=== PATIENT | female | born 2000 ===

== ENCOUNTER 2019-12-19 20:10 | Inpatient (IN) | payer MEDICAID ==
[~2019-12-19] VITALS: Ht 162.6 cm; Wt 104.3 kg
[2019-12-19 21:07] LABS: HEMATOCRIT 35.8 % (36.0-48.0); HEMOGLOBIN 11.6 g/dL (12-16); MCH 29.4 pg (26.0-34.0); MCHC 32.4 g/dL (31.0-37.0); MCV 90.6 fL (80.0-100.0); MEAN PLATELET VOLUME 9.5 fL (7.4-10.4); RBC 3.95 10x6/uL (4.00-5.40); RDW 15.4 % (11.5-14.5); WBC 12.7 10x3/uL (4.8-10.8)
[2019-12-19 21:23] VITALS: BP 123/66; Ht 162.6 cm; Wt 104.3 kg
[2019-12-19 22:06] LABS: UDS - AMPHET NEGATIVE QUAL (NEGATIVE); UDS - BARB NEGATIVE QUAL (NEGATIVE); UDS - BENZO NEGATIVE QUAL (NEGATIVE); UDS - COCAINE NEGATIVE QUAL (NEGATIVE); UDS - OPIATE NEGATIVE QUAL (NEGATIVE); UDS - PCP NEGATIVE QUAL (NEGATIVE); UDS - THC NEGATIVE QUAL (NEGATIVE)
[2019-12-20 05:51] LABS: BASOPHILS 0.2 % (0-2); EOSINOPHILS 1.2 % (0-7); HEMATOCRIT 33.8 % (36.0-48.0); HEMOGLOBIN 10.8 g/dL (12-16); IMMATURE GRANULOCYTES 0.5 % (0-5); LYMPHOCYTES 9.2 % (15-50); MCH 29.1 pg (26.0-34.0); MCV 91.1 fL (80.0-100.0); MEAN PLATELET VOLUME 9.6 fL (7.4-10.4); MONOCYTES 6.6 % (2-11); NEUTROPHILS 82.3 % (40-80); PLATELET COUNT 231 10x3/uL (130-400); RBC 3.71 10x6/uL (4.00-5.40); RDW 15.7 % (11.5-14.5); WBC 15.6 10x3/uL (4.8-10.8)
[2019-12-20 19:22] VITALS: BP 114/65
--- NOTE | 2019-12-20 19:22 | NUR ---
PT REC'D IN BED AT THIS TIME. LUNGS CLEAR. BS+. FUNDUS FIRM AND MIDLINE U/2. PT UP TO VOID AND VOIDED 300 ML AT THIS TIME. PERICARE PROVIDED AND PT BACK TO BED. Maribell BULLOCK. RN
--- NOTE | 2019-12-20 20:45 | NUR ---
PT MOVED TO ROOM 1278. NO DISTRESS NOTED. Maribell BULLOCK. RN
--- NOTE | 2019-12-20 21:20 | NUR ---
PT WITH INFANT AT THE BEDSIDE AT THIS TIME. ATTEPTING FEEDING. NO DISTRESS NOTED. Maribell BULLOCK RN
--- NOTE | 2019-12-20 22:20 | NUR ---
PT REC'D IN BED AT THIS TIME. NO DISTRESS NOTED. STATES THAT SHE IS NOT IN PAIN. INFANT TO NURSERY PT WANTS TO REST. Maribell BULLOCK RN
--- NOTE | 2019-12-21 00:47 | NUR ---
PT REC'D IN BED AT THIS TIME. ASLEEP DID NOT AWAKEN. RESPS EVEN AND UNLABORED. Maribell BULLOCK RN
--- NOTE | 2019-12-21 01:25 | NUR ---
RN TO PT BEDSIDE, IBUPROFEN 600MG PO ADMINISTERED PER MD ORDERS. ICE PACK, DERMOPLAST SPRAY, WITCH RYAN PAD APPIED TO PERINEUM. PT VOIDED 300ML TO URINE HAT, NO BLOOD CLOTS NOTED. PT ENOCURAGED TO AMBULATE IN HAYS. PT AMBULATED IN HALLWAY AT THIS TIME.
[2019-12-21 05:08] LABS: RAPID PLASMA REAGIN Non Reactive (Non Reactive)
--- NOTE | 2019-12-21 06:18 | NUR ---
PT REC'D IN BED AWAKE AT THIS TIME. DENIES NEEDS AT THIS TIME. PROVIDED WITH WATER. NO DISTRESS NOTED. Maribell BULLOCK RN
[2019-12-21 07:10] LABS: HEMOGLOBIN 8.7 g/dL (12-16); MCH 29.8 pg (26.0-34.0); MCHC 33.7 g/dL (31.0-37.0); MEAN PLATELET VOLUME 8.4 fL (7.4-10.4); NEUTROPHILS 78.6 % (40-80); PLATELET COUNT 239 10x3/uL (130-400); RDW 15.1 % (11.5-14.5); WBC 17.8 10x3/uL (4.8-10.8)
[2019-12-21 07:11] LABS: HEMATOCRIT 25.8 % (36.0-48.0); MCV 88.4 fL (80.0-100.0); RBC 2.92 10x6/uL (4.00-5.40)
[2019-12-21 07:33] VITALS: BP 116/62
--- NOTE | 2019-12-21 07:33 | NUR ---
AM ASSESSMENT COMPLETED, PT RESTING WITH EYES CLOSED ON ENTRY TO ROOM, NAD NOTED. RESP EVEN AND UNLABORED, HEART RRR, ABD SOFT, FUNDUS FIRM AT U/3 AND MIDLINE, REPORTS VOIDING WITHOUT DIFFICULTY, REINFORCED BETADINE/WATER PERIBOTTLE USE AFTER EACH VOID, LOCHIA RUBRA MODERATE AMOUNT, DENIES CLOTS, SOME PERINEAL EDEMA NOTED, REPORTS FLATUS, NEGATIVE IMANI'S SIGN B LE, PEDAL PULSES STRONG/=/+2 B. SALINE LOCK TO RIGHT HAND INTACT AND SECURED WITH CLEAR TAPE WITHOUT REDNESS, SWELLING, OR DRAINAGE. CALL LIGHT IN EASY REACH, BED IN LOW POSITION, BED BRAKES LOCKED, SIDE RAILS UP X2, INFANT IN ROLLING CRIB ADJACENT TO BED ALSO NAD NOTED. WILL MONITOR FOR CHANGE IN STATUS.
--- NOTE | 2019-12-21 08:50 | NUR ---
ROUNDS COMPLETED, PT LYING RIGHT LATERAL POSITION EYES CLOSED RESP EVEN AND UNLABORED, SIGNIFICANT OTHER PRESENT IN ROOM SLEEPING ON COUCH ADJACENT TO BED. NAD NOTED. WILL MONITOR.
--- NOTE | 2019-12-21 09:25 | NUR ---
ROUNDS COMPLETED, CERTIFICATE WORKSHEET PROVIDED TO COMPLETE PER REQUEST, DENIES NEEDS OR OTHER CONCERNS AT THIS TIME, REVIEWED POC. SIGNIFICANT OTHER REQUESTING INFORMATION ON TIME OF DISCHARGE. REVIEWED THAT DR WOULD ROUND LATER THIS MORNING AND WOULD BE DISCUSSED. WILL MONITOR FOR CHANGE IN STATUS.
--- NOTE | 2019-12-21 10:03 | NUR ---
PT OOB, REPORTS VOIDING WITHOUT DIFFICULTY, PRN MOTRIN GIVEN WITH SIPS WATER PER PT REQUEST FOR C/O PAIN RATED 3/10 ON NUMERIC PAIN SCALE. TAKEN TO NURSERY VIA ROLLING CRIB SO PT CAN AMBULATE IN HALLS WITH SIGNIFICANT OTHER. NAD NOTED. ICE PACK PROVIDED FOR PERINEAL USE. WILL MONITOR FOR CHANGE IN CONDITION.
--- NOTE | 2019-12-21 11:05 | NUR ---
PAIN REASSESSMENT COMPLETED, DENIES PAIN, AMBULATORY IN ROOM, DENIES DIZZINESS, PALPITATIONS/TACHYCARDIA, OR SOB. WILL MONITOR.
--- NOTE | 2019-12-21 12:10 | NUR ---
LUNCH TRAY PROVIDED TO PT, PT RESP EVEN AND UNLABORED, NAD NOTED. ROOM PHONE PLACED NEXT TO PT PER REQUEST. NO OTHER NEEDS VOICED AT THIS TIME. WILL MONITOR.
--- NOTE | 2019-12-21 13:29 | NUR ---
ROUNDS COMPLETED, PT PROVIDED CUP OF ICE WATER PER REQUEST, NO OTHER NEEDS VOICED AT THIS TIME, TOLERATING PO, VOIDING WITHOUT DIFFICULTY, DENIES PAIN AT PRESENT. INFANT IN ARMS, BONDING WELL. CALL LIGHT IN EASY REACH, WILL MONITOR.
--- NOTE | 2019-12-21 14:10 | NUR ---
ROUNDS COMPLETED, DENIES NEEDS OR CONCERNS, RESP EVEN AND UNLABORED, COLOR PINK, SKIN WARM AND DRY. CALL LIGHT IN EASY REACH, CUP OF ICE WATER PROVIDED AND ENCOURAGED. WILL MONITOR.
--- NOTE | 2019-12-21 15:18 | NUR ---
ROUNDS COMPLETED, PT HOLDING IN ARMS, +BONDING NOTED. SIGNIFICANT OTHER PRESENT IN PT ROOM. NAD NOTED. WILL MONITOR.
[2019-12-21 15:20] LABS: HEMATOCRIT 26.5 % (36.0-48.0); HEMOGLOBIN 8.7 g/dL (12-16); LYMPHOCYTES 12.7 % (15-50); MCH 29.3 pg (26.0-34.0); MCHC 32.8 g/dL (31.0-37.0); MCV 89.2 fL (80.0-100.0); MEAN PLATELET VOLUME 8.9 fL (7.4-10.4); NEUTROPHILS 79.1 % (40-80); PLATELET COUNT 242 10x3/uL (130-400); RBC 2.97 10x6/uL (4.00-5.40); RDW 15.5 % (11.5-14.5); WBC 14.4 10x3/uL (4.8-10.8)
--- NOTE | 2019-12-21 16:08 | NUR ---
PHONED DR HENRY, LAB RESULTS REVIEWED, ORDER RECEIVED TO DISCHARGE PT HOME WITH AT 24 HOURS . RELAYED PLAN OF CARE TO PT WHO IS AGREEABLE. NAD NOTED WILL MONITOR.
[2019-12-21] MEDS ORDERED: FERROUS SULFAT325 MG PO (16:21)
--- NOTE | 2019-12-21 16:40 | NUR ---
DISCHARGE INSTRUCTIONS REVIEWED WITH PT, HANDOUTS PROVIDED FOR REVIEW AT HOME, QUESTIONS ANSWERED, PT AND SIGNIFICANT OTHER VOICE UNDERSTANDING OF ALL INFORMATION RELAYED. PT NAD AND WILL CONTINUE TO MONITOR.
--- NOTE | 2019-12-21 17:12 | NUR ---
SALINE LOCK DISCONTINUED FROM PT RIGHT WRIST/HAND, GAUZE PRESSURE DRESSING SECURED WITH CLEAR SURGICAL TAPE. PT TOLERATES PROCEDURE WELL. NAD NOTED. CALL LIGHT IN EASY REACH, WILL MONITOR FOR CHANGE IN CONDITION.
--- NOTE | 2019-12-21 18:50 | NUR ---
REPORT GIVEN TO ONCOMING SHIFT.
--- NOTE | 2019-12-21 19:20 | NUR ---
PT DISCHARGED HOME VIA AMB WITH AND FOB AT SIDE, PT HAS ALL BELONGINGS AND WRITTEN DISCHARGE INST
--- NOTE | 2019-12-23 16:55 | MORECARE ---
CASE MANAGEMENT DISCHARGE SUMMARY PATIENT: ANTONIO LOCKHART UNIT: [id number] ADM DATE: 12/19/19 AGE: 19 : 89 SEX: F ROOM/BED: D.1278 AUTHOR: EULOGIO VINCENT PHYSICIAN: REFERRING PHYSICIAN: FRANCIS LOPEZ MD DATE OF SERVICE: 12/23/19 Discharge Plan Patient Name: ANTON[facility]OCK[facility] [facility] 2000 Planned Disposition: Home Anticipated Discharge Date: 12/21/19 Discharge Date: 12/21/2019 Expected LOS: 2 Initial Reviewer: [email or web address] Initial Review Date: 12/19/2019 Generated: 12/23/19 5:55 pm Patient Name: ANTONIO LOCKHART Page [id number] at 1650 All edits/amendments must be made on the electronic document DICTATION DATE: 12/23/191654 GATE GUARD: BHARTI 12/23/191654 RPT#: [id number] DC DATE:12/21/19 STATUS: DIS IN [facility] [address] [place] [address] END OF REPORT
== END 2019-12-21 19:20 | disposition home or self-care (01) | DRG 807 ==
LOC: D.LD 20:10
PROVIDERS: Student in an Organized Health Care Education/Training Program; ADMIT Obstetrics & Gynecology; ATTEND Obstetrics & Gynecology
PROC: 10E0XZZ Delivery of Products of Conception, External Approach (ICD-10-PCS; principal; 2019-12-20)
PROC: 0KQM0ZZ Repair Perineum Muscle, Open Approach (ICD-10-PCS; 2019-12-20)
PROC: 0W8NXZZ Division of Female Perineum, External Approach (ICD-10-PCS; 2019-12-20)
PROC: 3E033VJ Introduction of Other Hormone into Peripheral Vein, Percutaneous Approach (ICD-10-PCS; 2019-12-20)
PROC: 10907ZC Drainage of Amniotic Fluid, Therapeutic from Products of Conception, Via Natural or Artificial Opening (ICD-10-PCS; 2019-12-20)
DX: O70.1 Second degree perineal laceration during delivery (principal); Z37.0 Single live birth; Z3A.39 39 weeks gestation of pregnancy